=== PATIENT | female | born 1975 | race Caucasian/White ===

== ENCOUNTER 2020-10-08 08:21 | Outpatient (CLI) | payer OTHER, SELFPAY ==
[2020-10-08 08:39] LABS: Hematocrit 41.8 % (37.0-47.0); Hemoglobin 13.6 g/dL (12.0-15.0); Mean Corpuscular HGB Conc 32.5 g/dl (32-36); Mean Corpuscular Hemoglobin 29.3 pg (26-34); Mean Corpuscular Volume 90.1 fl (80-100); Platelet Count Result 167 k/mm3 (150-375); Red Blood Count 4.64 M/mm3 (4.2-5.4); Red Cell Distribution Width 13.3 % (11.5-14.5); White Blood Count 6.2 K/mm3 (4.5-10.0)
[2020-10-08 08:50] LABS: Albumin Level 4.5 g/dL (3.5-5.1); Anion Gap 5 mmol/L (8-16); Blood Urea Nitrogen 16 mg/dL (7-17); Calcium 9.3 mg/dL (8.4-10.2); Carbon Dioxide 29 mmol/L (22-30); Chloride 103 mmol/L (98-107); Estimated Glomerular Filt Rate > 60; Glucose 94 mg/dL (65-105); Potassium 4.3 mmol/L (3.4-5.0); Sodium 137 mmol/L (137-145)
[2020-10-08 08:59] LABS: Prealbumin 21.7 mg/dL (17.6-36.0)
[2020-10-08 09:16] LABS: Iron 75 ug/dL (37-170)
== END 2020-10-08 08:22 | disposition home or self-care (01) ==
LOC: ANHLAB 08:25
PROVIDERS: Visit Provider Surgery Plastic and Reconstructive Surgery
DX: Z01.818 Encounter for other preprocedural examination (principal)
CPT/HCPCS: 36415; 80048; 82040; 83540; 84134; 85027

== ENCOUNTER 2020-10-19 08:02 | Outpatient (CLI) | payer OTHER, SELFPAY ==
--- NOTE | 2020-10-19 08:30 | ECG_ITS ---
Measurements Intervals [place] Rate: 53 P: 49 MA: 178 QRS: 34 QRSD: 98 T: 47 QT: 421 QTc: 398 Interpretive Statements SINUS BRADYCARDIA LOW QRS VOLTAGE IN PRECORDIAL LEADS BORDERLINE ECG Electronically Signed On 10-19-2020 8:21:50 CDT by Eliseo Arias D.O.
== END 2020-10-19 08:03 | disposition home or self-care (01) ==
LOC: ANHSURGERY 08:04
PROVIDERS: Visit Provider Surgery Plastic and Reconstructive Surgery
DX: Z87.891 Personal history of nicotine dependence (principal); Z01.818 Encounter for other preprocedural examination
CPT/HCPCS: 93005

== ENCOUNTER 2020-10-23 00:52 | Day surgery (SDC) | payer OTHER, SELFPAY ==
[2020-10-23] VITALS (10 sets, daily range): BP systolic 108–124; BP diastolic 47–77; PULSE 56–85; RESP 12–18; TEMP 36–36.7; O2SAT 94–100
[2020-10-23 06:38] LABS: Urine Cotinine NEGATIVE
[2020-10-23] MEDS: LACTATED RINGERS 1,000 ML 30 ML IV CONT ×2 (06:39→13:13)
--- NOTE | 2020-10-23 06:52 | WPDHPUPDATE1 ---
History and Physical Update Update Date/Time: 10/23/20 06:52 History and Physical has been reviewed, including an updated exam of the patient. There are NO changes in the patient's condition. Again today we discussed DVT risks so she is very well informed. She voices understanding and would like to proceed accepting these risks. Risks, benefits, and alternatives have been discussed and questions answered. Patient agrees to proceed with procedure.
--- NOTE | 2020-10-23 07:13 | W.PM.PROC2 ---
Procedure Note - Detailed Date of Procedure 10/23/20 Pre-op Diagnosis skin laxity, breast ptosis Post-op Diagnosis same Procedure Performed 1. Bilateral mastopexy 2. Progressive tension abdominoplasty Surgeon Pete Cruz MD Anesthesia general Findings Abdominal tissue removed - 4078 grams. Description of Procedure They are here today for mastopexy and abdominoplasty. Previously and again today the risks, benefits, alternatives were discussed in extensive detail. I wanted them to be very realistic about the risks involved as well as expectations. She understands she will always have a degree of transverse laxity, she declines a vertical [id number] scar. We discussed aftercare and what to monitor for. I was very upfront about the risks of wound breakdown leading to loss of skin, open wounds, and need for additional procedures with permanent abdominal deformity. We discussed DVT/PE risks and management. Made sure answered all of their questions to their satisfaction today and consent was obtained. They were marked in the preoperative holding area with their verification. The patient was taken to the operating room placed supine on the operating table. Anesthesia was provided by anesthesiology. A Sanchez catheter was started. They were prepped and draped in a standard sterile fashion. A surgical time-out was taken. Breast: I used tumescent solution with low volume in order provide hemostasis for the breast. Tailor tacked the breast into position and placed her in a sitting position. Marked out the nipple-areolar complex at 38 mm based on preoperative planning intraoperative observations and measurements which were in full agreement. She was placed supine. I de-epithelialized the superior pedicle. I then created an inferior auto augmentation flap that was de-epithelialized and elevated deep to the breast in order to place this auto augmentation flap. Also elevated medial and lateral tissue flaps with good thickness to ensure good vascularity. I copiously irrigated with saline solution. Verified strict hemostasis. The auto augmentation flap was sutured to the chest wall using 2-0 PDS. Breast flaps were closed along the vertical incision as well as the IMF with 2-0 PDS. I inset the nipple-areolar complex using 3-0 Monocryl. 3-0 Monocryl along the vertical incision as well as 3-0 strata fix along the IMF. Final closure was running subcuticular 4-0 Monocryl and Steri-Strips. Abdomen: I placed the patient in a flexed position to verify the upper and lower markings would reach. I then placed supine. A thorough abdominal examination was completed. Stab incisions were made and tumescent solution infiltrated. A liposuction basket cannula was utilized to provide discontinuous undermining. A 10 blade was used to make the upper incision. I continued dissection down to the level of fascia. Elevated just what was necessary for repair of the diastasis. I then again flexed the bed to verify the upper skin flap would reach the lower markings without tension. Once verified I placed her supine once again and a 10 blade used to make the lower incision. I elevated up to level the umbilicus and left the umbilicus intact on a well-vascularized stalk. The intervening tissue was removed. A 2 mm blunt cannula with 0.5% bupivicaine was injected deep to the fascia bilaterally. I plicated the diastasis recti using 0 PDO stratafix barbed suture. This was in 2 separate layers using 2 separate sutures as well. I repaired around the umbilicus leaving plenty of room for well-vascularized stalk of the umbilicus with 2-0 PDS. I also repaired lateral to the rectus using two layers of 0 PDO stratafix. The patient was flexed and starting from superior to inferior began plication using 2-0 Vicryl to obliterate all space in a standard progressive tension fashion. At the umbilicus I marked out the location of the skin and inset this with 3-0 Monocry
--- NOTE | 2020-10-23 07:22 | WPDANESEPPF ---
Anes - Initial Pre Proc Eval Procedure: Operation Date: 10/23/20 07:30 Proposed Procedures p Bilateral Breast Mastopexy - Pete Cruz MD s Abdominoplasty - Pete Cruz MD Date/Time: 10/23/20 07:22 Surgeon: Pete Cruz MD Pre Op Diagnosis: skin laxity, breast ptosis Patient Data Age: 45 Gender: F Height: 1.78 m Weight: 95 kg Last Vital Signs Temp 96.8 F L 10/23/20 06:07 Pulse 56 L 10/23/20 06:07 Resp 16 10/23/20 06:07 BP 108/47 L 10/23/20 06:07 Pulse Ox 100 10/23/20 06:07 Allergies Allergy/AdvReac Type Severity Reaction Status Date / Time guaifenesin [From Robitussin] Allergy Intermediate trouble Verified 10/17/20 09:18 breathing Penicillins Allergy Intermediate Difficulty Verified 10/17/20 09:18 Breathing amoxicillin [From Augmentin] AdvReac Intermediate Difficulty Verified 10/17/20 09:18 Breathing clavulanic acid AdvReac Intermediate Difficulty Verified 10/17/20 09:18 [From Augmentin] Breathing codeine AdvReac Intermediate Difficulty Verified 10/17/20 09:18 Breathing hydrocodone [From Vicodin] AdvReac Intermediate Difficulty Verified 10/17/20 09:18 Breathing Home Medications Medication Instructions Recorded Confirmed Type levothyroxine 112 mcg tablet 112 mcg PO DAILY 07/04/20 10/23/20 History carisoprodol 350 mg tablet 350 mg PO TID PRN #21 tablet 10/08/20 10/23/20 Rx docusate sodium 100 mg capsule 100 mg PO DAILY #14 cap 10/08/20 10/23/20 Rx enoxaparin 40 mg/0.4 mL 40 mg SUBCUT DAILY #4 ml 10/08/20 10/23/20 Rx subcutaneous syringe ondansetron HCl 4 mg tablet 4 mg PO Q8H #21 tablet 10/08/20 10/23/20 Rx oxycodone-acetaminophen 5 mg-325 1 tablet PO Q6H PRN #15 tablet 10/08/20 10/23/20 Rx mg tablet Laboratory Tests 10/23/20 10/23/20 06:12 06:12 Thiamine (Vit B1) David Pending Cotinine Negative Patient hx anesthesia problems: none Family hx anesthesia problems: none [facility] Past Medical History Medical History (Updated 10/08/20 @ 08:11 by Mikaela Eddy) Hx of deep venous thrombosis Family History Family History Mother Acute myocardial infarction Father Acute myocardial infarction Social History Social History Smoking packs per day: 1.5 Smoking cigarettes per day: 30.0 Years smoked: 15 Smoking pack-years: 22.50 Smoking status: Unknown if ever smoked Tobacco type: cigarettes Smoking end date: 09/04/10 Alcohol intake: former Substance use: never Substance use type: does not use Living arrangements: with family Spiritual care concerns: No Anes - Eval Final PreProcedure Day of Procedure 10/23/20 07:22 Patient weight: obese Heart: regular rate and rhythm Lungs: clear to auscultation Airway: Mallampati scale class II Neurological: alert and oriented Last oral intake: >/= 8 hours ASA classification: III Emergent: no Anesthetic plan: proceed Anesthesia type and monitoring: general ETT and standard monitoring Informed Consent: The patient's anesthetic plan and its attendant risks and benefits were discussed with the patient/family/POA. Questions were solicited and answers provided to the satisfaction of the patient/family/POA.
[2020-10-23] MEDS: ceFAZolin 2 GM/D5W 50 ML 2 GM/50 ML BAG IVPB (07:26)
[2020-10-23] MEDS: TRANEXAMIC ACID 1,000MG/ISO100 1,000 MG/100 ML BAG 200 MG IVPB (07:47)
[2020-10-23] MEDS: BUPIVACAINE/EPINEPHRINE 0.5% 50 ML VIAL (08:11)
[2020-10-23] MEDS: LIDO 1%/EPINEPHRINE 1:100,000 20 ML VIAL 50 ML INFILTRATE (08:13)
[2020-10-23] MEDS: BUPIVACAINE HCL 0.25% PF 30 ML VIAL INFILTRATE (08:14)
[2020-10-23] MEDS: fentaNYL CITRATE INJ (*CRX) 100 MCG/2 ML VIAL 25 MCG IV PUSH (13:52)
--- NOTE | 2020-10-23 14:30 | PC.NURSE ---
This patient, Rachael Abrams, was received from PACU per bed on 10/23/20 at 1430. Patient oriented to unit policies and routines
[2020-10-23] MEDS: LACTATED RINGERS 1,000 ML 125 ML IV CONT ×2 (14:52→22:08)
[2020-10-23] MEDS: oxyCODONE/ACETAMINOPHEN (*CRX) 5-325 MG TABLET PO ×2 (15:50→22:06)
[2020-10-23] MEDS: ENOXAPARIN 40 MG/0.4 ML SYRINGE SUB-Q (18:37)
[2020-10-23] MEDS: DOCUSATE SODIUM 100 MG CAPSULE PO (18:37)
[2020-10-23] MEDS: carisoprodoL (*CRX) 350 MG TABLET PO (18:37)
[2020-10-24] VITALS (13 sets, daily range): BP systolic 71–109; BP diastolic 31–58; PULSE 46–79; RESP 16–18; TEMP 36.8–37.3; O2SAT 93–100
[2020-10-24] MEDS: carisoprodoL (*CRX) 350 MG TABLET PO ×3 (00:01→12:45)
[2020-10-24] MEDS: LACTATED RINGERS 1,000 ML 125 ML IV CONT ×2 (01:30→06:56)
--- NOTE | 2020-10-24 02:20 | PC.NURSE ---
0000 - this nurse in room for routine VS, BP low, repeated and still low 0002 - IV rate increased to 500ml/hr, BP repeated, pt. c/o feeling lightheaded, drowsy 0008 - O2 sats 93-95%, O2 started at 2.5L/min/nc 0015 - pt. starting to feel better, able to converse well 0122 - call to through exchange 0150 - IVF's reduced to 125/hr, pt feeling much better 015 - talked to , orders rec'd
[2020-10-24] MEDS: oxyCODONE/ACETAMINOPHEN (*CRX) 5-325 MG TABLET 1 TABLET PO ×4 (04:27→13:52)
--- NOTE | 2020-10-24 06:51 | WPDPN ---
Progress Note: A&P Assessment and Plan (1) Breast ptosis: Code(s): N64.81 - Ptosis of breast Status: Acute Assessment and Plan: She is doing well this morning after bilateral mastopexy and progressive tension abdominoplasty. Will discharge home. Follow-up. Today we had a lengthy discussion about the care. What to monitor for. Activity limitations. This was a lengthy open-ended conversation making sure answered all of her and her 's questions are satisfaction. They voiced a clear understanding. (2) Hx of deep venous thrombosis: Code(s): Z86.718 - Personal history of other venous thrombosis and embolism Status: Acute Assessment and Plan: She does have a history of DVT. No symptoms currently. She is going to use Lovenox at home. She understands the importance of ambulation. I will see her back. Again we had a lengthy discussion on this in particular discussing what is an emergency, went to [facility] 911/ [facility] emergency room. They are very well informed on this topic and will follow closely. (3) Skin laxity: Code(s): L57.4 - Cutis laxa senilis Status: Acute (4) History of weight loss surgery: Code(s): Z98.84 - Bariatric surgery status Status: Acute Subjective Date/time seen: 10/24/20 06:30 Overnight she had what sounds like an episode of orthostatic hypotension. She says now she feels great. She has had no additional episodes. No fevers or chills. No nausea vomiting. No shortness of breath. No chest pain. No calf tenderness. Review of Systems Review of Systems: All systems reviewed & are unremarkable except as noted in HPI and below Exam Narrative: Exam Narrative: She is resting comfortably. Alert and oriented. No obvious distress. Respiratory is nonlabored. Bilateral breasts are soft. No signs of infection. No hematoma. No seroma. Good color and capillary refill. Abdomen soft. No signs of infection. No hematoma. No seroma. Good color and capillary refill No calf tenderness. Negative Homans. Objective Data Vital Signs Vital Signs: Vital Signs - 24 hr 10/23/20 13:13 10/23/20 13:25 10/23/20 13:40 Temperature 36.3 C L Pulse Rate 85 84 81 Respiratory Rate 14 14 14 Blood Pressure 121/67 122/72 122/77 Pulse Oximetry 99 100 100 10/23/20 13:45 10/23/20 13:55 10/23/20 14:10 Temperature Pulse Rate 76 71 Respiratory Rate 14 14 Blood Pressure 120/70 124/72 Pulse Oximetry 97 96 94 10/23/20 14:23 10/23/20 14:40 10/23/20 20:10 Temperature 36.6 C 36.7 C Pulse Rate 74 71 74 Respiratory Rate 12 18 18 Blood Pressure 123/68 121/67 121/68 Pulse Oximetry 98 99 10/24/20 00:00 10/24/20 00:02 10/24/20 00:05 Temperature 36.8 C Pulse Rate 63 46 L 47 L Respiratory Rate 18 Blood Pressure 86/40 L 71/31 L 84/39 L Pulse Oximetry 96 93 94 10/24/20 00:08 10/24/20 00:10 10/24/20 00:15 Temperature Pulse Rate 52 L 63 63 Respiratory Rate 18 18 18 Blood Pressure 87/38 L 90/49 L 104/45 L Pulse Oximetry 95 99 97 10/24/20 00:30 10/24/20 01:00 10/24/20 01:15 Temperature Pulse Rate 60 62 65 Respiratory Rate 18 18 18 Blood Pressure 104/54 L 109/58 L 102/51 L Pulse Oximetry 100 99 99 10/24/20 01:30 10/24/20 01:45 10/24/20 04:30 Temperature 37.3 C Pulse Rate 64 60 64 Respiratory Rate 18 18 18 Blood Pressure 103/52 L 109/57 L 98/52 L Pulse Oximetry 99 100 99 Intake/Output Intake/Output: Intake & Output 10/21/20 10/22/20 10/23/20 10/24/20 23:59 23:59 23:59 23:59 Intake Total 1650 1350 Output Total 970 700 Balance 680 650 Meds/Results Medications: Active Medications Generic Name Dose Route Start Last Admin Trade Name Anthony PRN Reason Stop Dose Admin Carisoprodol 350 mg 10/23/20 18:00 10/24/20 00:01 Carisoprodol (*Crx) 350 Mg Tablet PO 350 mg Q6HR SARAH Administration Docusate Sodium 100 mg 10/23/20 21:00 10/23/20 18:37 Docusate Sodium 100 Mg Capsule PO
[2020-10-24] MEDS: LEVOTHYROXINE SODIUM 112 MCG TABLET PO (06:56)
--- NOTE | 2020-10-24 06:56 | P.DS_ITS ---
DS: Admitting Diagnosis Admitting Diagnosis Skin laxity Breast ptosis History of DVT DS: Discharge Diagnosis Discharge Diagnosis (1) Skin laxity: Code(s): L57.4 - Cutis laxa senilis Status: Acute (2) Breast ptosis: Code(s): N64.81 - Ptosis of breast Status: Acute (3) Hx of deep venous thrombosis: Code(s): Z86.718 - Personal history of other venous thrombosis and embolism Status: Acute (4) History of weight loss surgery: Code(s): Z98.84 - Bariatric surgery status Status: Acute DS: Summary Hospital Course Hospital Course: She underwent bilateral mastopexy and progressive tension abdominoplasty. Postoperatively she had a episode of orthostatic hypotension however recover quickly and has done well ever since. Will discharge home. Time Spent with Patient Time attestation: Total time spent providing and/or coordinating discharge services: Exam Narrative: Exam Narrative: She is resting comfortably. Alert and oriented. No obvious distress. Respiratory is nonlabored. Bilateral breasts are soft. No signs of infection. No hematoma. No seroma. Good color and capillary refill. Abdomen soft. No signs of infection. No hematoma. No seroma. Good color and capillary refill No calf tenderness. Negative Homans. Discharge Plan Discharge Patient Disposition: Home, Self-Care Discharge Instructions: POST OPERATIVE DISCHARGE INSTRUCTIONS PETE CRUZ M.D. [facility] [address] [place] [address] * No driving for 24 hours after anesthesia and while you are taking pain medication. * Take all prescribed medication as directed * Diet as tolerated. * No lifting or activity that raises blood pressure for 48 hours. * Regular walking / ambulation. * No showering until directed to. Once you shower do not take pain medication before showering as the combination of medication and heat may cause you to feel dizzy or pass out. * No pools or tubs for 2 weeks. * Call with any questions or concerns. * Slowly stand up straight as tolerated over the week. * No straining or lifting over 20 pounds. * Dressing Care: Surgical bra and abdominal binder for 23 hours per day. If you have any questions or concerns, please call the office . If it is after hours you will be directed to the [facility] exchange. Shortness of breath, chest pain, or other medical emergency dial 911 / proceed to the Emergency Room. Stand Alone Forms: General Discharge Instructions Follow-up/Referrals: Pete Cruz MD [Physician] - 1 Week Discharge Medications: Continued levothyroxine [Synthroid] 112 mcg tablet 112 mcg PO DAILY RF: 0 docusate sodium [Colace] 100 mg capsule 100 mg PO DAILY Qty: 14 RF: 0 ondansetron HCl [Zofran] 4 mg tablet 4 mg PO Q8H Qty: 21 RF: 0 carisoprodol [Soma] 350 mg tablet 350 mg PO TID PRN (Reason: muscle pain) Qty: 21 RF: 0 oxycodone-acetaminophen [Percocet] 5-325 mg tablet 1 tablet PO Q6H PRN (Reason: pain) Qty: 15 RF: 0 enoxaparin [Lovenox] 40 mg/0.4 mL syringe 40 mg subcut DAILY Qty: 4 RF: 0
[2020-10-24] MEDS: DOCUSATE SODIUM 100 MG CAPSULE PO (07:50)
[2020-10-24] MEDS: ENOXAPARIN 40 MG/0.4 ML SYRINGE SUB-Q (07:50)
--- NOTE | 2020-10-24 07:58 | WPDANLDPN2 ---
Anes-Prog Note L&D Date/Time: 10/24/20 07:58 Comfortable throughout: labor and delivery Neuraxial method: epidural Epidural/Spinal procedure site: clean & non-tender Neuro status: Neuro function grossly intact. Cardiovascular status: normal Respiratory status: normal Airway patency: baseline Mental status: baseline Post-Op hydration status: normal Vital Signs: Last Vital Signs Temp 37.3 C 10/24/20 04:30 Pulse 64 10/24/20 04:30 Resp 18 10/24/20 04:30 BP 98/52 L 10/24/20 04:30 Pulse Ox 99 10/24/20 04:30 Pain score (VAS): 0 I/O: Intake & Output 10/23/20 10/23/20 10/24/20 15:59 23:59 07:59 Intake Total 300 1350 2350 Output Total 95 875 700 Balance 143 089 7142 Post-procedural complaints: none Patient feedback: Patient satisfied with anesthetic care.
--- NOTE | 2020-10-24 08:50 | WPDANESPN ---
Anes - Prog Note Post-Op Date/Time: 10/24/20 08:50 Cardiovascular status: normal Respiratory status: normal Airway patency: baseline Mental status: baseline Post-Op hydration status: normal Vital Signs: Last Vital Signs Temp 37.3 C 10/24/20 04:30 Pulse 64 10/24/20 04:30 Resp 18 10/24/20 04:30 BP 98/52 L 10/24/20 04:30 Pulse Ox 99 10/24/20 04:30 Pain Score (VAS): 0 I/O: Intake & Output 10/23/20 10/24/20 10/24/20 23:59 07:59 15:59 Intake Total 1350 2350 Output Total 875 700 Balance 475 1650 Post-procedural complaints: none Patient Feedback: Patient satisfied with anesthetic care.
== END 2020-10-24 14:04 | disposition home or self-care (01) ==
LOC: ANHSURGERY 07:26 → ANHOB2 14:28
PROVIDERS: Visit Provider Surgery Plastic and Reconstructive Surgery
PROC: (CPT 19316; principal; 2020-10-23 07:30)
PROC: (CPT 19316; 2020-10-23 07:30)
DX: Z41.1 Encounter for cosmetic surgery (principal); L57.4 Cutis laxa senilis; N64.81 Ptosis of breast; Z86.718 Personal history of other venous thrombosis and embolism; Z79.899 Other long term (current) drug therapy; E66.9 Obesity, unspecified; Z68.30 Body mass index [BMI] 30.0-30.9, adult; Z98.84 Bariatric surgery status
CPT/HCPCS: 19316; 15830; 15847; 80307; 84425; 99199; A9270; C9290; J0171; J0690; J1100; J1170; J1650; J2250; J2405; J2704; J3010; J7120

== ENCOUNTER 2020-11-07 08:24 | Day surgery (SDC) | payer OTHER, SELFPAY ==
[2020-11-07] VITALS (11 sets, daily range): BP systolic 99–111; BP diastolic 44–57; PULSE 52–80; RESP 15–20; TEMP 36.6; O2SAT 97–100
--- NOTE | ~2020-11-07 | CT_ITS ---
EXAMINATION: CT brain wo con INDICATION: Dizziness and nausea COMPARISON: None TECHNIQUE: Standard unenhanced head CT. The dose-length product (DLP) was 681.00 mGy-cm. The mA was a djusted according to patient size. Iterative reconstruction technique was employed. FINDINGS: There is no intracranial hemorrhage, acute infarction, or abnormal mass lesion. The ventric les are normal. There is no abnormal mass effect or midline shift. The vaughan-white matter differentiat ion is normal. The basal cisterns are patent. The orbits are normal. The paranasal sinuses, mastoids and calvarium are normal. IMPRESSION: 1. No acute intracranial abnormality. Reviewed, dictated and finalized at location B.
--- NOTE | ~2020-11-07 | XR_ITS ---
EXAMINATION: XR chest 1V portable INDICATION: Dizziness and nausea TECHNIQUE: Portable AP chest at 0924 hours COMPARISON: None available FINDINGS: The lungs are free of acute opacities. There is no pleural effusion or pneumothorax. The ca rdiomediastinal silhouette is normal. IMPRESSION: 1. No acute cardiopulmonary abnormality. Reviewed, dictated and finalized at location B.
[2020-11-07 09:12] LABS: Basophils Percent Auto 0.2 % (0.2-1.2); Eosinophils Absolute Auto 0.1 K/mm3 (0-0.3); Eosinophils Percent Auto 1.7 % (0-4.4); Hematocrit 31.3 % (37.0-47.0); Hemoglobin 9.8 g/dL (12.0-15.0); Immature Granulocyte Absolute 0.04 K/mm3 (0.00-0.031); Immature Granulocyte Percent A 0.6 % (0-0.5); Lymphocytes Absolute Auto 1.01 K/mm3 (0.9-3.2); Lymphocytes Percent Auto 15.7 % (18.3-44.2); Mean Corpuscular HGB Conc 31.3 g/dl (32-36); Mean Corpuscular Hemoglobin 28.7 pg (26-34); Mean Corpuscular Volume 91.5 fl (80-100); Mean Platelet Volume 10.7 fl (7.4-10.4); Monocytes Absolute Auto 0.4 K/mm3 (0.1-0.6); Monocytes Percent Auto 6.8 % (2.6-8.5); Neutrophils Absolute Auto 4.8 K/mm3 (1.3-6.7); Platelet Count Result 274 k/mm3 (150-375); Red Blood Count 3.42 M/mm3 (4.2-5.4); Red Cell Distribution Width 15.6 % (11.5-14.5); White Blood Count 6.5 K/mm3 (4.5-10.0)
--- NOTE | 2020-11-07 09:18 | ECG_ITS ---
Measurements Intervals [place] Rate: 72 P: 40 DC: 159 QRS: 19 QRSD: 100 T: 42 QT: 413 QTc: 452 Interpretive Statements SINUS RHYTHM NONSPECIFIC T-WAVE ABNORMALITY- INF/LAT LEADS BASELINE ARTIFACT- I, II, AVR, AVL, AVF, V2-V6 BORDERLINE ECG Electronically Signed On 11-07-2020 9:43:11 CDT by Eliseo Arias D.O.
[2020-11-07 09:23] LABS: INR 1.1; Prothrombin Time 13.8 Seconds (11.1-14.7)
[2020-11-07 09:24] LABS: Partial Thromboplastin Time 30.2 SECONDS (22.3-36.8)
[2020-11-07 09:28] LABS: Alanine Aminotransferase 15 U/L (4-35); Albumin Level 3.5 g/dL (3.5-5.1); Alkaline Phosphatase 53 U/L (38-126); Anion Gap 7 mmol/L (8-16); Aspartate Amino Transferase 22 U/L (14-36); Bilirubin,Total 0.8 mg/dL (0.2-1.3); Blood Urea Nitrogen 12 mg/dL (7-17); Calcium 8.9 mg/dL (8.4-10.2); Carbon Dioxide 27 mmol/L (22-30); Chloride 99 mmol/L (98-107); Estimated CRCL calculation 146 ml/min; Estimated Glomerular Filt Rate > 60; Glucose 114 mg/dL (65-110); Potassium 3.6 mmol/L (3.4-5.0); Sodium 133 mmol/L (137-145)
--- NOTE | 2020-11-07 09:43 | ED.DIZZY ---
HPI - Dizziness General Chief Complaint: Dizziness Stated Complaint: post op comp Time Seen by Provider: 11/07/20 09:08 Source: RN notes reviewed History of Present Illness HPI Narrative: Patient presents to emergency department for postoperative complication. Patient states on 10/24/2019 when she had a tummy tuck procedure by Dr. Mckinney. States that since the surgery she has had some constant oozing of blood and fluid from her abdominal incision she states she was seen by Dr. Mckinney in follow-up earlier this week and at that time he felt that it was serous drainage she called him this morning noting continued drainage and was recommended come the ED for further evaluation. Patient states that 2 days ago she had an episode where she been feeling really dizzy and disoriented when she got up and also notes some tingling in her left arm she states that again this happened this morning she denies any definitive syncopal episodes she denies any facial droop or aphasia denies any fevers or chills chest pain or any other symptoms Related Data Home Medications Medication Instructions Recorded Confirmed levothyroxine 112 mcg tablet 112 mcg PO DAILY 07/04/20 10/23/20 levofloxacin PO 11/07/20 Allergies Allergy/AdvReac Type Severity Reaction Status Date / Time guaifenesin [From Robitussin] Allergy Intermediate trouble Verified 11/07/20 08:39 breathing Penicillins Allergy Intermediate Difficulty Verified 11/07/20 08:39 Breathing amoxicillin [From Augmentin] AdvReac Intermediate Difficulty Verified 11/07/20 08:39 Breathing clavulanic acid AdvReac Intermediate Difficulty Verified 11/07/20 08:39 [From Augmentin] Breathing codeine AdvReac Intermediate Difficulty Verified 11/07/20 08:39 Breathing hydrocodone [From Vicodin] AdvReac Intermediate Difficulty Verified 11/07/20 08:39 Breathing Review of Systems Review of Systems: Gen.: Denies fevers or chills Eyes: Denies eye pain or visual change ENT: Denies congestion Respiratory: Denies shortness of breath or cough CV: Denies chest pain or palpitations GI: See HPI Musculoskeletal: Denies back pain or muscle pain Neuro: Reports feeling dizzy and left arm tingling Skin: Denies rash Except as documented, all other systems reviewed and negative PMFSH Past Medical History Medical History Hx of deep venous thrombosis Family History Family History Mother Acute myocardial infarction Father Acute myocardial infarction Social History Social History Smoking packs per day: 1.5 Smoking cigarettes per day: 30.0 Years smoked: 15 Smoking pack-years: 22.50 Smoking status: Former smoker Tobacco type: cigarettes Smoking end date: 09/04/10 Alcohol intake: former Substance use: never Substance use type: does not use Spiritual care concerns: No Exam Narrative: APPEARANCE: No acute distress, nontoxic, resting in bed HEENT: Normocephalic, atraumatic, OMM, TMs clear bilaterally EYES: PERRL, EOMI NECK: Supple, nontender, full range of motion without pain, no meningismus RESPIRATORY: No respiratory distress, clear to auscultation bilaterally with no rhonchi wheezing or rales CARDIOVASCULAR: RRR s murmur ABDOMINAL: Soft, nondistended mild diffuse tenderness palpation lower abdominal surgical wound with bloody drainage out of left anterior wound and right lateral wound MUSCULOSKELETAL: Moves all extremities. No clubbing, cyanosis or edema. NEURO: A and O ?3, following commands, speech normal, no facial,muscle strength 5 out of 5 bilateral upper and lower extremities, no pronator drift SKIN:: Warm, dry. Normal Color PSYCHIATRIC: Normal affect/mood Course Course Emergency Course: Reviewed patient's old records including previous hemoglobin Discussed Dr. Mckinney presentation work-up
[2020-11-07] MEDS: SODIUM CHLORIDE 0.9% IV 1,000 ML 999 ML IV CONT (09:48)
--- NOTE | 2020-11-07 11:07 | PC.NURSE ---
Assumed care of pt at this time. Pt resting comfortably, VSS. Family at bedside.
[2020-11-07 11:18] LABS: Add Urine Microscopic? YES; Appearance Urine Clear (Clear); Bacteria Urine Trace /hpf; Bilirubin Urine Negative (Negative); Blood Urine Negative (Negative); Color Urine Yellow (Yellow); Glucose Urine UA Negative (Negative); Ketones Urine Negative (Negative); Leukocyte Esterase Ur Negative LEU/UL (Negative); Mucus Urine Rare /lpf; Nitrate Urine Negative (Negative); Protein Urine Negative (Negative); RBC Urine 0-2 /hpf (0-2); Specific Grav Ur 1.014 (1.001-1.035); Squamous Epithelial Cell Urine Rare /hpf (Few); WBC Urine 0-3 /hpf
[2020-11-07] MEDS: LACTATED RINGERS 1,000 ML 30 ML IV CONT ×2 (13:28→16:26)
--- NOTE | 2020-11-07 14:21 | WPDANESEPPF ---
Anes - Initial Pre Proc Eval Procedure: Operation Date: 11/07/20 15:30 Proposed Procedures p Abdominal Washout Post Abdominoplasty - Pete Cruz MD Date/Time: 11/07/20 14:21 Surgeon: Pete Cruz MD Pre Op Diagnosis: post op comp Patient Data Age: 45 Gender: F Height: 1.78 m Weight: 90.26 kg Last Vital Signs Temp 36.6 C 11/07/20 08:32 Pulse 70 11/07/20 12:24 Resp 15 11/07/20 12:24 BP 110/54 L 11/07/20 12:24 Pulse Ox 100 11/07/20 12:24 Allergies Allergy/AdvReac Type Severity Reaction Status Date / Time guaifenesin [From Robitussin] Allergy Severe trouble Verified 11/07/20 13:18 breathing Penicillins Allergy Severe Difficulty Verified 11/07/20 13:18 Breathing amoxicillin [From Augmentin] AdvReac Severe Difficulty Verified 11/07/20 13:18 Breathing clavulanic acid AdvReac Severe Difficulty Verified 11/07/20 13:18 [From Augmentin] Breathing codeine AdvReac Severe Difficulty Verified 11/07/20 13:18 Breathing hydrocodone [From Vicodin] AdvReac Severe Difficulty Verified 11/07/20 13:18 Breathing Home Medications Medication Instructions Recorded Confirmed Type levothyroxine 112 mcg tablet 112 mcg PO DAILY 07/04/20 11/07/20 History carisoprodol 350 mg tablet 350 mg PO TID PRN #21 tablet 10/08/20 11/07/20 Rx docusate sodium 100 mg capsule 100 mg PO DAILY #14 cap 10/08/20 11/07/20 Rx ondansetron HCl 4 mg tablet 4 mg PO Q8H #21 tablet 10/08/20 11/07/20 Rx oxycodone-acetaminophen 5 mg-325 1 tablet PO Q6H PRN #15 tablet 10/08/20 11/07/20 Rx mg tablet levofloxacin 750 mg PO DAILY 11/07/20 11/07/20 History Laboratory Tests 11/07/20 11/07/20 11/07/20 08:47 08:47 08:47 WBC 6.5 K/mm3 K/mm3 (4.5-10.0) RBC 3.42 M/mm3 L M/mm3 (4.2-5.4) Hgb 9.8 g/dL L D g/dL (12.0-15.0) Hct 31.3 % L % (37.0-47.0) MCV 91.5 fl fl (80-100) MCH 28.7 pg pg (26-34) MCHC 31.3 g/dl L g/dl (32-36) RDW 15.6 % H % (11.5-14.5) Plt Count 274 k/mm3 D k/mm3 (150-375) MPV 10.7 fl H fl (7.4-10.4) Immature Gran % (Auto) 0.6 % H % (0-0.5) Neut % (Auto) 75.0 % H % (45.5-73.1) Lymph % (Auto) 15.7 % L % (18.3-44.2) [place] % (Auto) 6.8 % % (2.6-8.5) Eos % (Auto) 1.7 % % (0-4.4) Baso % (Auto) 0.2 % % (0.2-1.2) Lymph # (Auto) 1.01 K/mm3 K/mm3 (0.9-3.2) [place] # (Auto) 0.4 K/mm3 K/mm3 (0.1-0.6) Eos # (Auto) 0.1 K/mm3 K/mm3 (0-0.3) Baso # (Auto) 0.0 K/mm3 K/mm3 (0.0-0.1) Abs Immat Gran (auto) 0.04 K/mm3 H K/mm3 (0.00-0.031) Absolute Neuts (auto) 4.8 K/mm3 K/mm3 (1.3-6.7) Absolute Nucleated RBC 0.0 K/mm3 K/mm3 (0.0-0.012) Nucleated RBC % 0.0 % % (0.0-0.2) PT 13.8 Seconds Seconds (11.1-14.7) INR 1.1 APTT 30.2 SECONDS SECONDS (22.3-36.8) Sodium 133 mmol/L L mmol/L (137-145) Potassium 3.6 mmol/L mmol/L (3.4-5.0) Chloride 99 mmol/L mmol/L (98-107) Carbon Dioxide 27 mmol/L mmol/L (22-30) Anion Gap 7 mmol/L L mmol/L (8-16) BUN 12 mg/dL mg/dL (7-17) Creatinine 0.50 mg/dL L mg/dL (0.7-1.0) Estim Creat Clear Calc 146 ml/min ml/min Estimated GFR > 60 (59 - ) Glucose 114 mg/dL H mg/dL (65-110) Calcium 8.9 mg/dL mg/dL (8.4-10.2) Total Bilirubin 0.8 mg/dL mg/dL (0.2-1.3) AST 22 U/L U/L (14-36) ALT 15 U/L U/L (4-35) Alkaline Phosphatase 53 U/L U/L (38-126) Total Protein 7.0 g/dL g/dL (6.3-8.2) Albumin 3.5 g/dL g/dL (3.5-5.1) Urine Color Urine Appearance Urine pH Ur Specific [place] Urine Protein Urine Glucose (UA) Urine Ketones
--- NOTE | 2020-11-07 15:18 | WPDHPUPDATE1 ---
History and Physical Update Update Date/Time: 11/07/20 15:18 History and Physical has been reviewed, including an updated exam of the patient. There are NO changes in the patient's condition. Risks, benefits, and alternatives have been discussed and questions answered. Patient agrees to proceed with procedure.
--- NOTE | 2020-11-07 15:19 | WPDCN ---
Assessment and Plan Assessment and plan (1) Postoperative hematoma: Status: Acute Assessment and Plan: She has had significant improvement in her abdominal appearance however continues to have some old blood drainage. I see no evidence of active bleeding. After lengthy discussion he would like proceed with formalized washout in the OR. We will proceed. Today we had a lengthy discussion about her options. Went over the risks, benefits, alternatives in great detail. Made sure answered all of their questions their understanding. They would like proceed. Voiced understanding. Consent obtained. (2) Skin laxity: Code(s): L57.4 - Cutis laxa senilis Status: Acute Assessment and Plan: Otherwise abdominoplasty doing well. Erythema improved. Normal white count. (3) Breast ptosis: Code(s): N64.81 - Ptosis of breast Status: Acute Assessment and Plan: She is very happy with her mastopexy results. (4) Hx of deep venous thrombosis: Code(s): Z86.718 - Personal history of other venous thrombosis and embolism Status: Acute Assessment and Plan: No evidence of active DVT. She was on blood thinner following her procedure however this has been discontinued. (5) History of weight loss surgery: Code(s): Z98.84 - Bariatric surgery status Status: Acute HPI Data of Consult Date/Time: 11/07/20 12:10 Requesting Physician: Pete Cruz MD Primary Care Provider: HERNANDO Consult Narrative Narrative: Rachael Abrams is a 45 year old female Who we saw in clinic on Thursday. She had a little bit of old hematoma in her abdomen that was draining and after lengthy discussion she was going to monitor. We are scheduled to see her again today however she called this morning saying she was having some shortness of breath as well as left arm numbness. Further she was having some confusion. Given her history of DVT we had her proceed emergency room for evaluation immediately. Workup in the emergency room was unremarkable. lab and test results noted. By the time I saw her in the emergency room she says she feels great. No complaints. Pain controlled. No fevers or chills. No nausea vomiting. No shortness of breath. No chest pain. Her discomfort had resolved. She believes she had a little bit of anxiety that has resolved. Review of Systems Review of Systems: All systems reviewed & are unremarkable except as noted in HPI and below PMFSH Past Medical History Medical History Hx of deep venous thrombosis Hypothyroid Family History Family History Mother Acute myocardial infarction Father Acute myocardial infarction Social History Social History Smoking packs per day: 1.5 Smoking cigarettes per day: 30.0 Years smoked: 15 Smoking pack-years: 22.50 Smoking status: Former smoker Tobacco type: cigarettes Smoking end date: 09/04/10 Alcohol intake: former Substance use: never Substance use type: does not use Spiritual care concerns: No Meds Home Medications and Allergies Home Medications Medication Instructions Recorded Confirmed Type levothyroxine 112 mcg tablet 112 mcg PO DAILY 07/04/20 11/07/20 History carisoprodol 350 mg tablet 350 mg PO TID PRN #21 tablet 10/08/20 11/07/20 Rx docusate sodium 100 mg capsule 100 mg PO DAILY #14 cap 10/08/20 11/07/20 Rx ondansetron HCl 4 mg tablet 4 mg PO Q8H #21 tablet 10/08/20 11/07/20 Rx oxycodone-acetaminophen 5 mg-325 1 tablet PO Q6H PRN #15 tablet 10/08/20 11/07/20 Rx mg tablet levofloxacin 750 mg PO DAILY 11/07/20 11/07/20 History Allergies Allergy/AdvReac Type Severity Reaction Status Date / Time guaifenesin [From Carlitositussin] Allergy Severe trouble Verified 11/07/20 13:18 breathing
[2020-11-07] MEDS: ceFAZolin SODIUM 1 GM VIAL 2 GM IV PUSH (15:47)
[2020-11-07] MEDS: BUPIVACAINE HCL 0.25% PF 30 ML VIAL INFILTRATE (15:55)
--- NOTE | 2020-11-07 16:15 | W.PM.PROC2 ---
Procedure Note - Detailed Date of Procedure 11/07/20 Pre-op Diagnosis Postop hematoma Post-op Diagnosis same Procedure Performed Washout abdomen Surgeon Pete Cruz MD Anesthesia general Findings 100 cc of old blood. No evidence of active bleeding. Description of Procedure Preoperatively the risks, benefits, alternatives were discussed in extensive detail. Want her and her to be very realistic about the risks involved as well as expectations. She has had significant decrease in abdominal volume however given the drainage in concerned they would like proceed to the operating room for formalized washout. All questions answered to their satisfaction and consent obtained. She was taken to the operating room placed supine on the operating room table. Anesthesia was provided by anesthesiology and she was prepped and draped in a standard sterile fashion. Surgical time-out was taken. 1% lidocaine and 0.25% Marcaine with epinephrine was used anesthetize locally. I opened the incision enough that I was able to get great visualization of the abdomen. Suction was completed which removed 100 cc of old blood. There is no evidence of active bleeding and I irrigated with 3 L of bacitracin containing solution. At the end of this again verified no evidence of active bleeding. A 15 Cecil drain was placed and brought out laterally through the incision. This was sutured into place with 2-0 silk. I closed using 2-0 Vicryl followed by 3-0 Monocryl in a running subcuticular 4-0 Monocryl and tissue glue. Dressings were placed followed by an abdominal binder. She was taken to the PACU without difficulty. All instrument sponge counts were correct at the end of the case. Estimated Blood Loss 5 Drains Yes ( Fifteen Cecil) Packing No Pathology none sent Complications No immediate complications Condition stable Disposition PACU
[2020-11-07] MEDS: TRANEXAMIC ACID 1,000 MG/10 ML AMPUL 1000 MG IV PUSH (16:20)
== END 2020-11-07 18:25 | disposition home or self-care (01) ==
LOC: ANHED 10:02 → ANHSURGERY 11:03
PROVIDERS: Emergency Medicine; Emergency Provider Emergency Medicine; Visit Provider Surgery Plastic and Reconstructive Surgery
PROC: (CPT 10140; principal; 2020-11-07 15:30)
DX: L76.32 Postprocedural hematoma of skin and subcutaneous tissue following other procedure (principal); Y83.8 Other surgical procedures as the cause of abnormal reaction of the patient, or of later complication, without mention of misadventure at the time of the procedure; D64.9 Anemia, unspecified; R55 Syncope and collapse; E03.9 Hypothyroidism, unspecified; Z86.718 Personal history of other venous thrombosis and embolism; Z87.891 Personal history of nicotine dependence; Z98.84 Bariatric surgery status
CPT/HCPCS: 10140; 36415; 70450; 71045; 80053; 81001; 81025; 85025; 85610; 85730; 86850; 86900; 86901; 93005; 96360; 99285; A9270; J0131; J0690; J1100; J2250; J2405; J2704; J3010; J7030; J7120

== ENCOUNTER 2020-11-10 22:45 | Emergency (ER) | payer OTHER, SELFPAY ==
[2020-11-10 22:48] VITALS: BP 103/47; PULSE 71; RESP 18; TEMP 36.6; O2SAT 100
[2020-11-10 23:39] LABS: Basophils Percent Auto 0.3 % (0.2-1.2); Eosinophils Absolute Auto 0.1 K/mm3 (0-0.3); Eosinophils Percent Auto 2.2 % (0-4.4); Hematocrit 27.2 % (37.0-47.0); Hemoglobin 8.6 g/dL (12.0-15.0); Immature Granulocyte Absolute 0.02 K/mm3 (0.00-0.031); Immature Granulocyte Percent A 0.3 % (0-0.5); Lymphocytes Absolute Auto 1.69 K/mm3 (0.9-3.2); Lymphocytes Percent Auto 28.4 % (18.3-44.2); Mean Corpuscular HGB Conc 31.6 g/dl (32-36); Mean Corpuscular Hemoglobin 27.8 pg (26-34); Mean Platelet Volume 10.5 fl (7.4-10.4); Monocytes Absolute Auto 0.6 K/mm3 (0.1-0.6); Monocytes Percent Auto 9.9 % (2.6-8.5); Neutrophils Absolute Auto 3.5 K/mm3 (1.3-6.7); Neutrophils Percent Auto 58.9 % (45.5-73.1); Platelet Count Result 295 k/mm3 (150-375); Red Blood Count 3.09 M/mm3 (4.2-5.4); Red Cell Distribution Width 15.3 % (11.5-14.5)
[2020-11-10 23:50] LABS: Alanine Aminotransferase 12 U/L (4-35); Albumin Level 3.2 g/dL (3.5-5.1); Alkaline Phosphatase 44 U/L (38-126); Anion Gap 5 mmol/L (8-16); Aspartate Amino Transferase 21 U/L (14-36); Bilirubin,Total 0.4 mg/dL (0.2-1.3); Blood Urea Nitrogen 13 mg/dL (7-17); Calcium 8.3 mg/dL (8.4-10.2); Carbon Dioxide 28 mmol/L (22-30); Chloride 101 mmol/L (98-107); Estimated CRCL calculation 147 ml/min; Estimated Glomerular Filt Rate > 60; Glucose 88 mg/dL (65-110); Potassium 3.7 mmol/L (3.4-5.0); Sodium 134 mmol/L (137-145)
[2020-11-10 23:51] LABS: Prothrombin Time 13.5 Seconds (11.1-14.7)
[2020-11-10 23:52] LABS: Partial Thromboplastin Time 25.9 SECONDS (22.3-36.8)
[2020-11-10 23:55] VITALS: BP 93/59; PULSE 60; RESP 16; O2SAT 95
[2020-11-10 23:55] LABS: D Dimer 3.09 ug/mL (<0.48)
[2020-11-10 23:56] LABS: Large Platelets Present; Platelet Estimate Adequate (Adequate)
[2020-11-10 23:57] LABS: Anisocytosis 1+ (NORMAL); Hypochromasia 2+ (NORMAL); Ovalocytes 2+ (NORMAL)
[2020-11-11 00:29] VITALS: BP 104/55; PULSE 59; RESP 16; O2SAT 98
--- NOTE | 2020-11-11 00:32 | ED.GENADULT ---
HPI - General Adult General Chief complaint: Extremity Problem,Nontraumatic Stated complaint: swelling and pain to calves, hx DVTS Time Seen by Provider: 11/10/20 23:08 History of Present Illness HPI narrative: Patient 45-year-old female presents emerged department chief complaint of lower extremity swelling. Patient reports she has history of DVT and had a abdominoplasty complicated with a hematoma that was bleeding and subsequent drain placement. Patient reports that she was on Lovenox post her original surgery and is currently not on Lovenox after her second procedure. Patient states that she noticed that her leg started swelling a little bit and started having some discomfort in her calves. Patient states this is concerning since she has had a prior DVT in the past. Patient states she had no chest pain no shortness of breath. Related Data Home Medications Medication Instructions Recorded Confirmed levothyroxine 112 mcg tablet 112 mcg PO DAILY 07/04/20 11/07/20 levofloxacin 750 mg PO DAILY 11/07/20 11/07/20 Allergies Allergy/AdvReac Type Severity Reaction Status Date / Time guaifenesin [From Robitussin] Allergy Severe trouble Verified 11/10/20 23:58 breathing Penicillins Allergy Severe Difficulty Verified 11/10/20 23:58 Breathing amoxicillin [From Augmentin] AdvReac Severe Difficulty Verified 11/10/20 23:58 Breathing clavulanic acid AdvReac Severe Difficulty Verified 11/10/20 23:58 [From Augmentin] Breathing codeine AdvReac Severe Difficulty Verified 11/10/20 23:58 Breathing hydrocodone [From Vicodin] AdvReac Severe Difficulty Verified 11/10/20 23:58 Breathing Review of Systems Review of Systems: A 10 system review of systems was completed on the patient and is negative except for what is stated in the HPI. Nursing and ancillary documentation was reviewed. [facility] Past Medical History Medical History Hx of deep venous thrombosis Hypothyroid Family History Family History Mother Acute myocardial infarction Father Acute myocardial infarction Social History Social History Smoking packs per day: 1.5 Smoking cigarettes per day: 30.0 Years smoked: 15 Smoking pack-years: 22.50 Smoking status: Former smoker Tobacco type: cigarettes Smoking end date: 09/04/10 Alcohol intake: former Substance use: never Substance use type: does not use Spiritual care concerns: No Exam Narrative: GENERAL: Well-appearing, well-nourished, and in no acute distress. HEAD: Normocephalic, atraumatic. EYES: PERRLA and EOMI. ENT: Nares clear, no rhinorrhea or epistaxis. Mucous membranes moist. NECK: Supple. CHEST: Clear to auscultation. No respiratory distress. HEART: Regular rate and rhythm. No murmur heard. Normal peripheral pulses. ABDOMEN: Soft, nontender, nondistended, normal active bowel sounds. EXTREMITIES: Normal range of motion. Trace lower extremity edema slight erythema.. SKIN: Warm, dry, no rash. NEURO: No focal deficits. Alert and oriented x3. PSYCH: Normal mood and affect. Course Vital Signs Vital signs: Vital Signs Temperature 36.6 C 11/10/20 22:48 Pulse Rate 71 11/10/20 22:48 Respiratory Rate 18 11/10/20 22:48 Blood Pressure 103/47 L 11/10/20 22:48 Pulse Oximetry 100 11/10/20 22:48 Temperature 36.6 C 11/10/20 22:48 Pulse Rate 59 L 11/11/20 00:29 Respiratory Rate 16 11/11/20 00:29 Blood Pressure 104/55 L 11/11/20 00:29 Pulse Oximetry 98 11/11/20 00:29 Medical Decision Making Vital Signs Vital Signs: Vital Signs Temperature 36.6 C 11/10/20 22:48 Pulse Rate 71 11/10/20 22:48 Respiratory Rate 18 11/10/20 22:48 Blood Pressure 103/47 L 11/10/20 22:48 Pulse Oximetry 100 11/10/20 22:48 Temperature 36.6 C 11/10/20
[2020-11-11] MEDS: ENOXAPARIN 100 MG/ML SYRINGE 90 MG SUB-Q (00:58)
[2020-11-11 01:02] VITALS: PULSE 61; RESP 16; O2SAT 98
== END 2020-11-11 01:07 | disposition home or self-care (01) ==
PROVIDERS: Emergency Provider Emergency Medicine
DX: R60.0 Localized edema (principal); E03.9 Hypothyroidism, unspecified; Z86.718 Personal history of other venous thrombosis and embolism; Z87.891 Personal history of nicotine dependence
CPT/HCPCS: 36415; 80053; 85025; 85380; 85610; 85730; 96372; 99283; J1650

== ENCOUNTER 2020-11-11 07:35 | Outpatient (CLI) | payer OTHER, SELFPAY ==
--- NOTE | ~2020-11-11 | US_ITS ---
EXAMINATION: US venous doppler [facility] DATE: 11/11/2020 08:20 INDICATION: Bilateral lower limb pain TECHNIQUE: Patrick scale images without and with compression and Doppler images of the bilateral lower e xtremity veins were obtained. COMPARISON: None FINDINGS: The right common femoral vein, profunda femoral vein, femoral vein, popliteal vein, peroneal trunk, p osterior tibial veins, and greater saphenous vein are patent. The left common femoral vein, profunda femoral vein, femoral vein, popliteal vein, peroneal trunk, po sterior tibial veins, and greater saphenous vein are patent. IMPRESSION: 1. Patent bilateral lower extremity veins. No evidence of deep venous thrombosis. Reviewed, dictated and finalized at location A. IMPRESSION: 1. Patent bilateral lower extremity veins. No evidence of deep venous thrombosi s.
== END 2020-11-11 07:36 | disposition home or self-care (01) ==
LOC: ANHIMG 07:38
PROVIDERS: Visit Provider Emergency Medicine
DX: M79.89 Other specified soft tissue disorders (principal)
CPT/HCPCS: 93970

== ENCOUNTER → 2020-11-13 08:50 | Outpatient (CLI) | payer OTHER, SELFPAY ==
--- NOTE | ~2020-11-13 | US_ITS ---
EXAMINATION:US venous doppler LE BI INDICATION:Leg pain TECHNIQUE: Multiple grayscale, color flow and Doppler images of the right and left lower extremity de ep venous systems were obtained and reviewed. COMPARISON:Ultrasound dated 11/11/2020 FINDINGS: The common femoral, superficial femoral and popliteal veins demonstrate normal respiratory variation, augmentation and compressibility. Color flow is also seen within the peroneal, greater sa phenous and profunda veins. There is new deep venous thrombosis in one of 2 left posterior tibial vei ns. IMPRESSION: 1: No deep venous thrombosis in one of 2 left posterior tibial veins. 2: No evidence for deep venous thrombosis of the right lower extremity. The patient will be held in the department to contact the referring physician, Dr. Pete Cruz MD on 11/13/2020. Reviewed, dictated and finalized at location A.
== END ==
PROVIDERS: Visit Provider Surgery Plastic and Reconstructive Surgery
DX: M79.661 Pain in right lower leg (principal); M79.662 Pain in left lower leg
CPT/HCPCS: 93970